=== PATIENT | female | born 1990 | race Caucasian/White ===

== ENCOUNTER → 2016-12-16 | Outpatient (CLI) | payer MEDICAID | LOC: FIMAGING 14:04 | PROVIDERS: ATTEND Nurse Practitioner Women's Health | DX: N94.6 Dysmenorrhea, unspecified (principal) ==

== ENCOUNTER 2017-07-29 11:43 | Emergency (ER) | payer MEDICAID ==
[2017-07-29] MEDS ORDERED: ONDANSETRON 4 MG/2 ML VIAL IVP ONE (14:25)
[2017-07-29] MEDS ORDERED: NS 1,000 ML IV ONE (14:25)
--- NOTE | 2017-07-29 14:25 | EDPHY ---
H & P Time Seen by Provider: 07/29/17 13:41 HPI/ROS: CHIEF COMPLAINT: Right upper quadrant, right rib pain HISTORY OF PRESENT ILLNESS: Patient is a 19-year-old female who presents emergency department with right upper quadrant pain starting yesterday. She describes it as right lower rib pain. She also feels discomfort under her ribs. It is worse when she lays back or takes a deep breath. It is sharp and constant. She states that now extends from her right clavicle down to her right elbow. She denies any fevers or chills. No cough. No shortness of breath. Her last menstrual period was 2 weeks ago. She denies leg pain or swelling. No dysuria or frequency. REVIEW OF SYSTEMS: My complete review of systems is negative except as mentioned in the HPI. Past Medical/Surgical History: Negative Past surgical history: Negative Social history: The patient does not smoke, use drugs or alcohol. Smoking Status: Never smoked Physical Exam: 36.2, 100/74, 60, 17, 99% on room air GENERAL: Well-appearing, in no acute distress, alert. HEENT: Eyes normal to inspection, normal pharynx, no signs of dehydration. NECK: No thyromegaly, no lymphadenopathy, supple. RESPIRATORY: Clear to auscultation bilaterally, no rales, rhonchi or wheezing. CVS: Regular rate and rhythm, no rubs, murmurs, or gallops. Chest wall: Mild chest wall tenderness palpation over the right lateral ribs. There is no rash or palpable mass. ABDOMEN: Soft, deep right upper quadrant tenderness to palpation with no rebound or guarding, nondistended, no organomegaly. BACK: Normal to inspection, no CVA tenderness. SKIN: Normal color, no rash, warm, dry. No pallor. EXTREMITIES: No pedal edema, no calf tenderness, no Homans sign or cords, no joint swelling. NEURO/PSYCH: Alert and oriented x3, normal mood and affect, normal motor sensory exam. Constitutional: Initial Vital Signs Temperature (C) 36.2 C 07/29/17 12:04 Heart Rate 68 07/29/17 12:04 Respiratory Rate 17 07/29/17 12:04 Blood Pressure 100/74 07/29/17 12:04 O2 Sat (%) 99 07/29/17 12:04 O2 Delivery Mode Room Air Allergies/Adverse Reactions: penicillin G Allergy (Verified 07/29/17 12:03) Home Medications: Medication Instructions Recorded NK [No Known Home Meds] 07/29/17 Medical Decision Making - Diagnostics Imaging Results: Imaging Impressions Abdomen Ultrasound 07/29/17 14:26 Impression: 1. No cholelithiasis, biliary dilation, or free fluid. 2. 1-cm tumefactive sludge ball versus avascular polyp. Recommend follow-up ultrasound in 3-6 months. If the finding proves to be a polyp with internal blood flow on subsequent follow up, recommend surgical consultation. Findings discussed with Emergency Department physician, Dr. Gabrielle Bush on July 29, 2017 at 1603 hours. Chest X-Ray 07/29/17 14:26 Impression: Clear lungs. No pneumoperitoneum or acute process. ED Course/Re-evaluation: In the emergency department I discussed possible etiologies with the patient answered all her questions. IV was placed. Laboratory studies were obtained. A right upper quadrant ultrasound was ordered. Chest x-ray was ordered. Patient was given morphine 4 mg IV for pain and Zofran 4 mg IV for nausea. I reviewed the patient's laboratory studies. Her white count was minimally elevated. She was mildly anemic. Her chemistry panel was unremarkable. LFTs and lipase were normal. Chest x-ray: No acute disease noted. Wells criteria is low. Perc rule negative. I discussed the results with the patient. I answered all her questions. On repeat exam she had no respiratory distress. Clear breath sounds. I discussed possible etiologies with the patient. I answered all her questions. I gave her warnings prior to leaving. She will return with worsening symptoms. Differential Diagnosis: My differential includes but is not limited to pneumonia, bronchitis, pneumothorax, hiatal hernia, zoster, cholecystitis, cholangitis, urinary tract infection, pyelonephritis, , ectopic - Data Points Laboratory Results: Laboratory Results 07/29/17 13:55 07/29/17 13:55 07/29/17 07/29/17 07/29/17 14:30 13:55 13:55 WBC RBC Hgb Hct MCV MCH MCHC RDW Plt Count MPV Neut % (Auto) Lymph % (Auto) [place] % (Auto) Eos % (Auto) Baso % (Auto) Nucleat RBC Rel Count Absolute Neuts (auto) Absolute Lymphs (auto) Absolute Monos (auto) Absolute Eos (auto) Absolute Basos (auto) Absolute Nucleated RBC Immature Gran % Immature Gran # Sodium 138 mEq/L mEq/L (134-144) Potassium 4.0 mEq/L mEq/L (3.5-5.2) Chloride 103 mEq/L mEq/L (97-110) Carbon Dioxide 25 mEq/l mEq/l (22-31) Anion Gap 10 mEq/L mEq/L (8-16) BUN 10 mg/dL mg/dL (7-23) Creatinine 0.8 mg/dL mg/dL (0.6-1.0) Estimated GFR > 60 Glucose 89 mg/dL mg/dL (70-100) Calcium 9.0 mg/dL mg/dL (8.5-10.4) Total Bilirubin 0.4 mg/dL mg/dL (0.1-1.4) Conjugated Bilirubin 0.0 mg/dL mg/dL (0.0-0.5) Unconjugated Bilirubin 0.4 mg/dL mg/dL (0.0-1.1) AST 21 IU/L IU/L (14-46) ALT 23 IU/L IU/L (9-52) Alkaline Phosphatase 50 IU/L IU/L (38-126) Total Protein 6.6 g/dL g/dL (6.3-8.2) Albumin 4.2 g/dL g/dL (3.5-5.0) Lipase 53 IU/L IU/L (23-300) Beta HCG, Qual NEGATIVE Urine Color PALE YELLOW Urine Appearance CLEAR Urine pH 6.0 (5.0-7.5) Ur Specific [place] 1.003 (1.002-1.030) Urine Protein NEGATIVE (NEGATIVE) Urine Ketones NEGATIVE (NEGATIVE) Urine Blood NEGATIVE (NEGATIVE) Urine Nitrate NEGATIVE (NEGATIVE) Urine Bilirubin NEGATIVE (NEGATIVE) Urine Urobilinogen NEGATIVE EU EU (0.2-1.0) Ur Leukocyte Esterase TRACE H (NEGATIVE) Urine RBC 1-3 /hpf /hpf (0-3) Urine WBC 1-3 /hpf /hpf (0-3) Ur Epithelial Cells TRACE /lpf /lpf (NONE-1+) Urine Bacteria 1+ /hpf H /hpf (NONE SEEN) Urine Glucose NEGATIVE (NEGATIVE) 07/29/17 13:55 WBC 10.49 10^3/uL H 10^3/uL (3.80-9.50) RBC 4.64 10^6/uL 10^6/uL (4.18-5.33) Hgb 12.1 g/dL L g/dL (12.6-16.3) Hct 36.8 % L % (38.0-47.0) MCV 79.3 fL L fL (81.5-99.8) MCH 26.1 pg L pg (27.9-34.1) MCHC 32.9 g/dL g/dL (32.4-36.7) RDW 14.8 % % (11.5-15.2) Plt Count 256 10^3/uL 10^3/uL (150-400) MPV 10.5 fL fL (8.7-11.7) Neut % (Auto) 71.6 % % (39.3-74.2) Lymph % (Auto) 21.0 % % (15.0-45.0) [place] % (Auto) 6.5 % % (4.5-13.0) Eos % (Auto) 0.2 % L % (0.6-7.6) Baso % (Auto) 0.4 % % (0.3-1.7) Nucleat RBC Rel Count 0.0 % % (0.0-0.2) Absolute Neuts (auto) 7.52 10^3/uL H 10^3/uL (1.70-6.50) Absolute Lymphs (auto) 2.20 10^3/uL 10^3/uL (1.00-3.00) Absolute Monos (auto) 0.68 10^3/uL 10^3/uL (0.30-0.80) Absolute Eos (auto) 0.02 10^3/uL L 10^3/uL (0.03-0.40) Absolute Basos (auto) 0.04 10^3/uL 10^3/uL (0.02-0.10) Absolute Nucleated RBC 0.00 10^3/uL 10^3/uL (0-0.01) Immature Gran % 0.3 % % (0.0-1.1) Immature Gran # 0.03 10^3/uL 10^3/uL (0.00-0.10) Sodium Potassium Chloride Carbon Dioxide Anion Gap BUN Creatinine Estimated GFR Glucose Calcium Total Bilirubin Conjugated Bilirubin Unconjugated Bilirubin AST ALT Alkaline Phosphatase Total Protein Albumin Lipase Beta HCG, Qual Urine Color Urine Appearance Urine pH Ur Specific [place] Urine Protein Urine Ketones Urine Blood Urine Nitrate Urine Bilirubin Urine Urobilinogen Ur Leukocyte Esterase Urine RBC Urine WBC Ur Epithelial Cells Urine Bacteria Urine Glucose Medications Given: Discontinued Medications Sodium Chloride (Ns) 1,000 mls @ 0 mls/hr IV EDNOW ONE; Wide Open PRN Reason: Protocol Stop: 07/29/17 14:26 Last Admin: 07/29/17 14:40 Dose: 1,000 mls Morphine Sulfate (Morphine) 4 mg IVP EDNOW ONE Stop: 07/29/17 14:26 Last Admin: 07/29/17 14:40 Dose: 4 mg Ondansetron HCl (Zofran) 4 mg IVP EDNOW ONE Stop: 07/29/17 14:26 Last Admin: 07/29/17 14:41 Dose: 4 mg Departure - Departure Disposition: Home, Routine, Self-Care Clinical Impression: Right upper quadrant pain Condition: Good Instructions: Acute Abdominal Pain (ED), Chest Pain (ED) Additional Instructions: Return with increasing chest pain, shortness of breath, fever, nausea, vomiting , increased abdominal pain or any other concerns. Referrals: Elidia Lofton MD [Primary Care Provider] - 1-2 days without fail Antwan Maharaj MD [Medical Doctor] - As per Instructions
[2017-07-29 14:30] LABS: % IMMATURE GRANULYOCYTES 0.3 % (0.0-1.1); ABSOLUTE IMMATURE GRANULOCYTES 0.03 10^3/uL (0.00-0.10); ADD DIFF? NO; ADD MORPH? NO; ADD SCAN? NO; ATYPICAL LYMPHOCYTE FLAG 0 (0-99); FRAGMENT RBC FLAG 0 (0-99); HEMATOCRIT 36.8 % (38.0-47.0); HEMOGLOBIN 12.1 g/dL (12.6-16.3); LEFT SHIFT FLG 0 (0-99); LIPEMIA HEMOLYSIS FLAG 80 (0-99); MEAN CELL HEMOGLOBIN 26.1 pg (27.9-34.1); MEAN CELL HEMOGLOBIN CONCENTR. 32.9 g/dL (32.4-36.7); MEAN CELL VOLUME 79.3 fL (81.5-99.8); MEAN PLATELET VOLUME 10.5 fL (8.7-11.7); PLATELET CLUMPS FLAG 10 (0-99); PLATELET COUNT 256 10^3/uL (150-400); RED BLOOD CELL COUNT 4.64 10^6/uL (4.18-5.33); RED CELL DISTRIBUTION WIDTH 14.8 % (11.5-15.2)
[2017-07-29 14:44] LABS: ALANINE AMINOTRANSFERASE 23 IU/L (9-52); ALBUMIN 4.2 g/dL (3.5-5.0); ALKALINE PHOSPHATASE 50 IU/L (38-126); ANION GAP 10 mEq/L (8-16); ASPARTATE AMINOTRANSFERASE 21 IU/L (14-46); BILIRUBIN,TOTAL 0.4 mg/dL (0.1-1.4); BILIRUBIN-UNCONJUGATED 0.4 mg/dL (0.0-1.1); CARBON DIOXIDE 25 mEq/l (22-31); CHLORIDE 103 mEq/L (97-110); CREATININE 0.8 mg/dL (0.6-1.0); GLOMERULAR FILTRATION RATE > 60; GLUCOSE 89 mg/dL (70-100); SODIUM 138 mEq/L (134-144); TOTAL PROTEIN 6.6 g/dL (6.3-8.2)
[2017-07-29 14:59] LABS: COLOR PALE YELLOW; LEUKOCYTE ESTERASE,URINE TRACE (NEGATIVE); NITRITE,URINE NEGATIVE (NEGATIVE)
[2017-07-29 16:01] LABS: BACTERIA 1+ /hpf (NONE SEEN)
[2017-07-29] MEDS ORDERED: KETOROLAC 30 MG/1 ML SDV IVP ONE (16:26)
[2017-07-29] MEDS ORDERED: KETOROLAC 15 MG/1 ML SDV ONE (16:28)
[2017-07-29 16:38] VITALS: BP 109/65; PULSE 69; RESP 16; TEMP 98.6; O2SAT 96
== END 2017-07-29 16:37 | disposition home or self-care (01) ==
DX: R10.11 Right upper quadrant pain (principal); E86.9 Volume depletion, unspecified
CPT/HCPCS: 96374; J1885; J2405

== ENCOUNTER → 2017-08-01 | Outpatient (CLI) | payer MEDICAID ==
[~2017-08-01] MED LIST: IOPAMIDOL (ISOVUE 370) 100 ML BTL IV ONE
== END ==
LOC: FIMAGING 11:40
PROVIDERS: ATTEND Internal Medicine
DX: K82.4 Cholesterolosis of gallbladder (principal); R07.2 Precordial pain
CPT/HCPCS: Q9967